=== PATIENT | male | born 1980 | race Two or more races ===

== ENCOUNTER 2023-12-31 12:08 | Emergency (ER) | payer MEDICAID ==
[~2023-12-31] VITALS: Ht 172.7 cm; Wt 80.0 kg
[2023-12-31 12:22] VITALS: TEMP 97
[2023-12-31 13:35] VITALS: BP 131/80; PULSE 75; RESP 16
[2023-12-31] MEDS: NALOXONE HCL 1 MG/ML 2 ML SYRINGE IVP ONE (14:20)
[2023-12-31 14:55] LABS: ANION GAP 6 mmol/L (8-16); CALCIUM, TOTAL 8.6 mg/dL (8.8-10.5); CARBON DIOXIDE 27 mmol/L (22-29); CHLORIDE 105 mmol/L (98-107); GLOMERULAR FILTR. RATE CALC 55 mL/min (>60); GLUCOSE,RANDOM 89 mg/dL (70-110); POTASSIUM 4.3 mmol/L (3.5-5.1); SODIUM SERUM 138 mmol/L (136-145); UREA NITROGEN, BLOOD 16 mg/dL (7-18)
[2023-12-31 14:59] LABS: ALCOHOL, BLOOD (SERUM) < 3 mg/dL (0-10)
== END 2023-12-31 15:22 | disposition home or self-care (01) ==
LOC: EMS 12:10
DX: T40.2X1A Poisoning by other opioids, accidental (unintentional), initial encounter (principal); F17.210 Nicotine dependence, cigarettes, uncomplicated; F12.90 Cannabis use, unspecified, uncomplicated; Y92.89 Other specified places as the place of occurrence of the external cause
CPT/HCPCS: 99283; 80048; 36415; G0480